=== PATIENT | male | born 1985 | race African-American/Black ===

== ENCOUNTER 2016-09-09 15:40 | Emergency (ER) | payer OTHER ==
[~2016-09-09] VITALS: Ht 162.6 cm; Wt 85.0 kg
[2016-09-09 17:29] VITALS: BP 150/105
== END 2016-09-09 17:21 | disposition home or self-care (01) ==
LOC: EME 15:40
DX: S60.445A External constriction of left ring finger, initial encounter (principal); W49.04XA Ring or other jewelry causing external constriction, initial encounter
CPT/HCPCS: 99281; 99283